=== PATIENT | male | born 1990 | race Caucasian/White ===

== ENCOUNTER 2021-10-07 14:20 | Emergency (ER) | payer SELFPAY ==
[2021-10-07] MEDS ORDERED: Lidocaine 1% 30 ML SDV INFILT ONE (14:34)
[2021-10-07] MEDS ORDERED: Bacitracin Oint 1 GM U/D Packet TOP ONE (14:53)
== END 2021-10-07 15:07 | disposition home or self-care (01) ==
LOC: DL.ED 14:20
DX: S51.811A Laceration without foreign body of right forearm, initial encounter (principal); I10 Essential (primary) hypertension; Z88.2 Allergy status to sulfonamides; Z79.899 Other long term (current) drug therapy; Z72.0 Tobacco use; W26.8XXA Contact with other sharp object(s), not elsewhere classified, initial encounter; Y99.0 Civilian activity done for income or pay
CPT/HCPCS: 12001; 99282-25

== ENCOUNTER 2025-06-25 14:20 | Emergency (ER) | payer BC ==
[2025-06-25 14:43] LABS: BASOPHILS PERCENT AUTO 0.5 % (0.0-1.0); EOSINOPHILS PERCENT AUTO 2.9 % (1.0-3.0); LYMPHOCYTES PERCENT AUTO 29.1 % (20.5-50.1); MONOCYTES PERCENT AUTO 8.1 % (2-8); NEUTROPHILS PERCENT AUTO 59.4 % (42.2-75.2); PLATELET COUNT,PLT 204 10^3/uL (150-450); RED BLOOD CELL COUNT 4.59 10^6/uL (4.6-6.2); WHITE BLOOD CELL COUNT,WBC 5.9 10^3/uL (5.0-10.0)
[2025-06-25 15:04] LABS: A/G RATIO 1.3; ALANINE AMINOTRANSFERASE,ALT 57 U/L (16-63); ASPARTATE AMNIOTRANSFERASE,AST 25 U/L (15-37); BILIRUBIN TOTAL 0.4 mg/dL (0.2-1.0); BLOOD UREA NITROGEN,BUN 11 mg/dL (7-18); CARBON DIOXIDE,CO2 30 mmol/L (21-32); CHLORIDE,CL 105 mmol/L (98-107); CREATININE 1.05 mg/dL (0.70-1.30); GLUCOSE RANDOM 125 mg/dL (70-99); POTASSIUM,K 3.8 mmol/L (3.5-5.1); PROTEIN TOTAL,TP 7.4 g/dL (6.4-8.2); SODIUM,NA 146 mmol/L (136-145)
[2025-06-25 15:08] LABS: ESTIMATED GFR 97 mL/min (>=60); ETHANOL BLOOD MEDICAL < 3 mg/dL (0)
[2025-06-25 15:41] LABS: AMPHETAMINES,URINE NEGATIVE (NEGATIVE); BARBITURATES,URINE NEGATIVE (NEGATIVE); MDMA (ECSTASY), URINE NEGATIVE (NEGATIVE); METHAMPHETAMINES,URINE NEGATIVE (NEGATIVE); OPIATES,URINE NEGATIVE (NEGATIVE); OXYCODONE,URINE NEGATIVE (NEGATIVE); PHENCYCLIDINE,URINE NEGATIVE (NEGATIVE); TCA,URINE NEGATIVE (NEGATIVE)
== END 2025-06-25 16:55 | disposition home or self-care (01) ==
LOC: DL.ED 14:20
DX: R55 Syncope and collapse (principal); I10 Essential (primary) hypertension; Z87.891 Personal history of nicotine dependence; Z88.2 Allergy status to sulfonamides; Z79.899 Other long term (current) drug therapy
CPT/HCPCS: 36415; 80053; 80305-QW; 80307; 82375; 83735; 84484; 85025; 93005; 99284